=== PATIENT | female | born 2000 | race Caucasian/White ===

== ENCOUNTER 2019-09-05 08:47 | Emergency (ER) | payer BC ==
--- NOTE | 2019-09-05 09:27 | EDM.PDOC ---
ED HPI GENERAL MEDICAL PROBLEM - General Chief Complaint: ENT Problem Stated Complaint: SORE THROAT Time Seen by Provider: 09/05/19 09:10 Source of Information: Reports: Patient History Limitations: Reports: No Limitations - History of Present Illness INITIAL COMMENTS - FREE TEXT/NARRATIVE: She developed sore throat yesterday morning. This worsened throughout the day. She had low grade fever of 100 She denies cough She has had headache and her neck is sore She has trouble swallowing and sleeping due to neck pain She states she has history of recurrent strep that often comes up negative initially and culture is then positive. Onset Date: 09/04/19 Onset Time: 08:00 Quality: Reports: Ache, Burning, Same as Previous Episode Severity: Severe Worsens with: Reports: Breathing, Eating Sore Throat and Neck Pain Pain Score (Numeric/FACES): 5 - Related Data Allergies Allergy/AdvReac Type Severity Reaction Status Date / Time No Known Allergies Allergy Verified 09/05/19 09:49 Home Meds: Home Meds Norgestimate-Ethinyl Estradiol [Tri-Previfem Tablet] 1 tab PO DAILY 09/05/19 [ History] ED ROS ENT - Review of Systems Review Of Systems: Comprehensive ROS is negative, except as noted in HPI. ED EXAM, ENT - Physical Exam Exam: See Below Exam Limited By: No Limitations General Appearance: Alert, WD/WN, Mild Distress Eye Exam: Bilateral Eye: PERRL Ears: Normal External Exam, Normal Canal, Hearing Grossly Normal, Normal TMs Nose: Normal Inspection Mouth/Throat: Throat Pain, Tonsillar Erythema, Tonsillar Exudates, Tonsillar Swelling Head: Atraumatic, Normocephalic Neck: Normal Inspection, Supple Respiratory/Chest: No Respiratory Distress, Lungs Clear, Normal Breath Sounds Cardiovascular: Regular Rate, Rhythm, No Murmur Back: Normal Inspection Extremities: Normal Range of Motion Neurological: Alert, Oriented, Normal Cognition, Normal Gait, Normal Reflexes Psychiatric: Normal Mood Skin: Warm, Dry, Intact, Normal Color, No Rash Lymphatic: Adenopathy (1+ anterior cervical lymphadenopathy) Course - Vital Signs Last Recorded V/S: Last Vital Signs Temp 98.7 F 09/05/19 09:00 Pulse 98 09/05/19 09:00 Resp 14 09/05/19 09:00 BP 127/69 09/05/19 09:00 Pulse Ox 97 09/05/19 09:00 Departure - Departure Time of Disposition: 09:35 Disposition: Home, Self-Care 01 Condition: Good Clinical Impression: Tonsillitis - Discharge Information *PRESCRIPTION DRUG MONITORING PROGRAM REVIEWED*: Not Applicable *COPY OF PRESCRIPTION DRUG MONITORING REPORT IN PATIENT ENID: Not Applicable Instructions: Tonsillitis, [id number] Referrals: Maureen Mendez PA-C [Primary Care Provider] - Forms: ED Department Discharge Additional Instructions: Drink plenty of water Take your medication as directed Take tylenol or ibuprofen as per package directions prn fever or pain F/U with PCP if not resolved in 3 days or if symptoms worsen Return to ER if symptoms change and area severe Sepsis Event Note - Focused Exam Vital Signs: Vital Signs Temp Pulse Resp BP Pulse Ox 09/05/19 09:00 98.7 F 98 14 127/69 97 Date Exam was Performed: 09/05/19 Time Exam was Performed: 19:08 - Problem List Review Problem List Initiated/Reviewed/Updated: Yes - Assessment/Plan Assessment:: Strep tonsillitis Plan: She is given a script for amoxicillin 500 mg 2 po bid for one week. Drink plenty of fluid Tylenol or Ibuprofen prn Throat lozenges prn ; salt water gargles prn Follow up precautions given
== END 2019-09-05 09:48 | disposition home or self-care (01) ==
LOC: VM.ED 08:47
DX: J03.90 Acute tonsillitis, unspecified (principal)
CPT/HCPCS: 87880-QW; 99283